=== PATIENT | male | born 1985 | race Two or more races ===

== ENCOUNTER 2021-12-10 20:06 | Emergency (ER) | payer BC ==
[~2021-12-10] VITALS: Ht 170.2 cm; Wt 93.0 kg
[2021-12-10 20:53] VITALS: BP 159/92
[2021-12-10] MEDS ORDERED: KETOROLAC TROMETHAMINE INJ 30 MG/ML VIAL ONE (21:19)
[2021-12-10] MEDS ORDERED: KETOROLAC TROMETHAMINE INJ 60 MG/2 ML VIAL IM ONE (21:30)
[2021-12-10] MEDS ORDERED: LIDOCAINE 5% (PATCH) 1 EA PATCH TP SCH (21:30)
[2021-12-10] MEDS ORDERED: LIDO30AD10 TP (21:31)
[2021-12-10] MEDS ORDERED: NAPR-1164 PO (21:31)
[2021-12-10] MEDS ORDERED: CYCL5TAB PO (21:31)
[2021-12-10] MEDS ORDERED: LIDOCAINE 5% (PATCH) 1 EA PATCH TP ONE (21:32)
--- NOTE | 2021-12-10 21:34 | NUR ---
Patient discharged to home in stable condition. Rx and Written and verbal after care instructions given. Patient verbalizes understanding of instruction.
== END 2021-12-10 21:40 | disposition home or self-care (01) ==
LOC: ER 20:11
DX: S13.4XXA Sprain of ligaments of cervical spine, initial encounter (principal); S39.012A Strain of muscle, fascia and tendon of lower back, initial encounter; Z79.899 Other long term (current) drug therapy; V49.59XA Passenger injured in collision with other motor vehicles in traffic accident, initial encounter; Y93.89 Activity, other specified; Y92.413 State road as the place of occurrence of the external cause; Y99.8 Other external cause status
CPT/HCPCS: 99283; 96372; J1885